=== PATIENT | male | born 1970 | race Two or more races ===

== ENCOUNTER 2018-10-15 20:00 | Inpatient (IN) | payer MEDICARE, MEDICAID ==
[~2018-10-15] VITALS: Ht 172.7 cm; Wt 73.0 kg
[2018-10-15] MEDS ORDERED: benztropine 1mg tablet PO ONE (21:30)
[2018-10-15] MEDS ORDERED: naproxen 500mg tablet PO ONE (21:30)
[2018-10-15] MEDS ORDERED: QUEtiapine 25mg tablet PO ONE (21:35)
[2018-10-15] MEDS ORDERED: gabapentin 100mg capsule PO ONE (21:35)
[2018-10-15 22:21] VITALS: BP 107/78
[2018-10-15] MEDS ORDERED: acetaminophen 325mg tablet PO PRN (22:25)
[2018-10-15] MEDS ORDERED: magnesium hydroxide 30ml (MOM) UD suspension PO PRN (22:30)
[2018-10-15] MEDS: LORazepam 1 MG tablet PO PRN (22:47)
--- NOTE | 2018-10-15 23:36 | NUR ---
Skin assessment completed by myself and Ellen. No areas of concern noted upon arrival at [facility].
[2018-10-15] MEDS ORDERED: NAPR-56 PO (23:55)
[2018-10-15] MEDS ORDERED: RANI150C4 PO (23:56)
[2018-10-15] MEDS ORDERED: BENZ1TAB7 PO (23:58)
[2018-10-16] MEDS ORDERED: ARIP5TAB4 PO
[2018-10-16] MEDS ORDERED: FLUP5TAB PO (00:02)
[2018-10-16] MEDS ORDERED: QUET25TA PO (00:04)
[2018-10-16] MEDS ORDERED: FLUT200B3 PO (00:07)
[2018-10-16] MEDS ORDERED: ALBU18HF2 INH (00:07)
[2018-10-16] MEDS ORDERED: GABA-530 PO ×2 (00:15)
[2018-10-16] MEDS ORDERED: QUEtiapine 25mg tablet PO PRN (00:30)
[2018-10-16] MEDS ORDERED: albuterol 2.5 MG/3 ML nebule NEB PRN (00:30)
--- NOTE | 2018-10-16 03:00 | NUR ---
ADMIT NOTE: Psychosis NOS/Hx Substance use/Suicidal Ideation. 5150 for DTS. Med Hx: HTN, COPD, Asthma, MEYER's. Client was transferred from [facility] after being placed on a 5150 for DTS. Client has a long hx of mental health issues and inpatient psych admits for psychosis. The 5150 was written after the client reported hearing voices "telling me to stab myself in the stomach". The client was living in '[facility]'. He was taken off Clozaril and Depakote approximately 2 1/2 weeks ago. There were other medication adjustments at that time. The clients behavior started to change, he began to display increasing signs of fear and paranoia. He now reports seeing "stars" and hearing voices. He is experiencing delusions about "being taken out into a field and shot". He reported to staff at [facility] that people were talking about him. He appears to be responding to internal stimuli and is fearful. The client arrived on the unit at 21:30 accompanied by Maureen Trinh. Client ambulated to the unit. He presents as anxious and fearful. He looks slightly younger than his stated age, has poor personal hygiene, and is wearing soiled clothing. During admission the client laid on the bed with his arms across his abdomen and his fist closed. He only moved his head. His eyes darted around the room. He spoke in a low tone and gave inconsistent verbal responses (i.e. he told this RN he stopped smoking two weeks ago and told Dorie Mojica RN he stopped three days ago). He reported to Dorie Mojica RN that he has AIDs. He denied having any infectious diseases to this RN. At this time we do not know HIV status. According to his medical record he has Tardive Dyskinesia. No involuntary movements were noted during assessment. The client was cooperative, but is a poor historian. He signed all consent forms, personal belongings were inventoried, and he accepted PM medications. He was given 2 mg Ativan Tab PO for anxiety. Client fell asleep after assessment.
[2018-10-16 08:00] VITALS: BP 98/65
[2018-10-16] MEDS ORDERED: aripiprazole 5mg tablet PO SCH (08:00)
[2018-10-16] MEDS ORDERED: naproxen 500mg tablet PO SCH (08:00)
[2018-10-16 08:13] LABS: HEMOGLOBIN A1C 5.6 % (4.5-6.2)
[2018-10-16 08:14] LABS: CHOL/HDL RATIO 3.1 (0.00-4.99); CHOLESTEROL 116 MG/DL (0-200); HDL CHOLESTEROL 38 MG/DL (35-60); LDL CHOLESTEROL 66 MG/DL (50-100); TRIGLYCERIDES 104 MG/DL (20-135)
[2018-10-16] MEDS: famotidine 20mg tablet PO SCH ×2 (08:56→20:05)
[2018-10-16] MEDS: benztropine 1mg tablet PO SCH ×2 (08:56→20:06)
[2018-10-16] MEDS: acetaminophen 325mg tablet PO PRN (10:35)
[2018-10-16] MEDS: LORazepam 1 MG tablet PO PRN (12:14)
[2018-10-16] MEDS ORDERED: OLANZapine 5mg rapidly disint. tablet PO ONE (12:45)
[2018-10-16] MEDS ORDERED: fluticasone nasal spray 16GM bottle NS ONE (14:55)
[2018-10-16] MEDS ORDERED: diphenhydrAMINE 25mg capsule PO PRN (14:55)
--- NOTE | 2018-10-16 15:13 | NUR ---
Nursing Progress Note: Patient here for Psychosis NOS/Hx Substance use/Suicidal Ideation. Legal Hold: 5150 for DTS. Med Hx: HTN, COPD, Asthma, MEYER's. Chief Complaint: Client was transferred from [facility] after being placed on a 5150 for DTS. Client has a long hx of mental health issues and inpatient psych admits for psychosis. The 5150 was written after the client reported hearing voices "telling me to stab myself in the stomach". The client was living in '[facility] He was taken off Clozaril and Depakote approximately 2 1/2 weeks ago. There were other medication adjustments at that time. The clients behavior started to change, he began to display increasing signs of fear and paranoia. He now reports seeing "stars" and hearing voices. He is experiencing delusions about "being taken out into a field and shot". He reported to staff at [facility] that people were talking about him. He appears to be responding to internal stimuli and is fearful. Orlando is now admitted for psychiatric stabilization Report received from Dorie with use of SBAR. Why are they here: Safety and stabilization. Assessment What has happened this shift: Patient was asleep at change of shift and up for breakfast. After breakfast patient c/o back pain. RN gave pt Tylenol. Patient stated he is hearing voices but they have lessened. Pt denies SI/HI. Patient states he is sometimes seeing visual hallucinations. Soon after this encounter with patient, patient asks "an I going to tonight?" because the voices are telling me I am. RN called Dr. Garcia who ordered some anti-psychotic meds. Within the hour patient was feeling better. Patient then ate lunch and went to afternoon group. Patient continues on Q 15 minute checks. A/VH: Denies. Sleep: Pt napped for a short time after getting medication. ADL's: Needs prompting. Group attendance: Patient went to groups today. Were meds taken: Compliant. Any med S/E: None observed Mental Status Exam Appearance: Patient is a short, olive skinned main, unkempt with a tuft of hair at his neck. Eye contact: some eye contact. Behavior: :Lays in bed and watches T.V. Speech: Soft. Mood: Depressed. Affect: Anxious. Thought process: Undetermined. Thought Content: dealing with voices. Cognition: . Insight: Poor. Judgment: Impaired. Interventions: Therapeutic Listening. PRN medications. PRN's used: Tylenol, Ativan, Prolaxin, Zyprexa. Therapeutic interventions: 1:1 to assess for severity of symptoms. Medication administration and monitored for side effects. Q15" checks for patient safety. Restraints/seclusion/emergency medication: None. Justification of Continued Inpatient Treatment: Patient is depressed, anxious and hearing voices. Pt needs psychiatric stabilization. Patient would be at high risk for rehospitalization if discharged before stable.
[2018-10-16] MEDS ORDERED: nicotine prolacrilex 2mg gum BC PRN (16:20)
[2018-10-16] MEDS: haloperidol 5mg tablet PO SCH (17:26)
[2018-10-16] MEDS: naproxen 500mg tablet PO PRN (17:26)
[2018-10-16 19:00] VITALS: BP 102/63
[2018-10-16] MEDS: clonazePAM 0.5mg tablet PO SCH (20:06)
[2018-10-16] MEDS: aripiprazole 5mg tablet PO SCH (20:06)
--- NOTE | 2018-10-17 00:36 | NUR ---
Nursing progress note: Chief Complaint: "I hear voices telling me to kill myself." Legal hold:5150 Client on involuntary status for DTS. Report received from nurse Laura with use of SBAR. Why are they here:the patient has long history of mental illness. He has been living at [facility]. Medication changes were made that led to adverse behavioral changes. He started hearing voices and became fearful and paranoid. the patient has been admitted for medication stabilization. Diagnosis/presenting symptoms: Paranoid Schizophrenia with AV/H, fearful, paranoid. Assessment What has happened this shift: The patient was found in his bed. He reports that he's still hearing voices, but they are better than before. The patient says that he's still feeling a little paranoid, but he's able to tolerate it. The patient is guarded with his answers and does not spontaneously converse. He spent the entire night in bed. S/I, H/I:Denies A/VH: Both Sleep: Patient has been sleeping all night. ADL's:Independent Group attendance:None tonight Were meds taken:Yes Any med S/E: None noted. Mental Status Exam Appearance: Disheveled, unkempt man laying in bed with bad haircut. Eye contact:Poor Behavior:Laying in bed, mostly sleeping. Speech:Clear, low volume Mood: Depressed Affect:Guarded Thought process: Linear Thought Content: Preoccupied with hallucinations Cognition: A/O x2 Insight:Poor Judgment: Mostly intact Interventions PRN's used:none Therapeutic interventions:1:1, positive reinforcement. Medication education and administration, q15 minute visual checks. Restraints/seclusion/emergency medication:None Justification of Continued Inpatient Treatment: The patient remains unstable, with voices commanding him to harm himself. If discharged before stabilization, the patient may act on these commands and harm self.
[2018-10-17] MEDS: benztropine 1mg tablet PO SCH ×2 (06:31→20:17)
[2018-10-17] MEDS: haloperidol 5mg tablet PO PRN (06:32)
[2018-10-17 07:21] VITALS: BP 99/68
[2018-10-17] MEDS: haloperidol 5mg tablet PO SCH ×3 (07:55→20:17)
[2018-10-17] MEDS: famotidine 20mg tablet PO SCH ×2 (07:55→20:17)
[2018-10-17] MEDS: clonazePAM 0.5mg tablet PO SCH ×3 (07:55→20:16)
[2018-10-17] MEDS: fluticasone nasal spray 16GM bottle NS SCH (07:57)
[2018-10-17] MEDS: LORazepam 1 MG tablet PO PRN ×2 (09:32→20:17)
--- NOTE | 2018-10-17 14:19 | NUR ---
Nursing Progress Note: Patient here for Psychosis NOS/Hx Substance use/Suicidal Ideation. Legal Hold: 5150 for DTS. Med Hx: HTN, COPD, Asthma, MEYER's. Chief Complaint: Client was transferred from [facility] after being placed on a 5150 for DTS. Client has a long hx of mental health issues and inpatient psych admits for psychosis. The 5150 was written after the client reported hearing voices "telling me to stab myself in the stomach". The client was living in [facility] He was taken off Clozaril and Depakote approximately 2 1/2 weeks ago. There were other medication adjustments at that time. The clients behavior started to change, he began to display increasing signs of fear and paranoia. He now reports seeing "stars" and hearing voices. He is experiencing delusions about "being taken out into a field and shot". He reported to staff at [facility] that people were talking about him. He appears to be responding to internal stimuli and is fearful. Orlando is now admitted for psychiatric stabilization Report received from MIRTHA Mccoy with use of SBAR. Why are they here: Safety and stabilization. Assessment What has happened this shift: Patient was awake at change of shift and RN found patient in his room sitting on the edge of the bed looking out the window. RN asked patient if he was okay. Patient stated he sees his body outside the window. Patient is also hearing voices but he can't make out what they are saying. Pt denies SI/HI. RN gave patient his PRN Haldol and Cogentin. At breakfast patient states he is still hearing voices and asks RN "I going to ?". RN reassures patient that he is safe and we are taking care of him. RN gave patient his morning medications including his regular dose of Haldol. Mid morning patient states he is still hearing voices. RN gave patient Ativan, gurpreet Green RN, Ativan has helped his hallucinations in the past. Patient doing better in the afternoon. Patient continues on Q 15 minute checks. A/VH: Denies. Sleep: Pt takes cat naps throughout the day. ADL's: Needs prompting. Group attendance: No groups today. Were meds taken: Compliant. Any med S/E: None observed Mental Status Exam Appearance: Patient is a short, olive skinned main, unkempt with a tuft of hair at his neck. Eye contact: some eye contact. Behavior: :Lays in bed and watches T.V. Speech: Soft. Mood: Depressed. Affect: Anxious. Thought process: Undetermined. Thought Content: dealing with voices. Cognition: . Insight: Poor. Judgment: Impaired. Interventions: Therapeutic Listening. PRN medications. PRN's used: Tylenol, Ativan, Prolaxin, Zyprexa. Therapeutic interventions: 1:1 to assess for severity of symptoms. Medication administration and monitored for side effects. Q15" checks for patient safety. Restraints/seclusion/emergency medication: None.
[2018-10-17] MEDS: mag hydrox/Alum hydrox/simeth 30ml oral suspension PO PRN (16:50)
[2018-10-17 19:19] VITALS: BP 86/54
[2018-10-17] MEDS: aripiprazole 5mg tablet PO SCH (20:16)
--- NOTE | 2018-10-18 01:07 | NUR ---
Nursing progress note: Chief Complaint: "I hear voices telling me to kill myself." Legal hold:5150 Client on involuntary status for DTS. Report received from nurse Laura with use of SBAR. Why are they here:the patient has long history of mental illness. He has been living at [facility]. Medication changes were made that led to adverse behavioral changes. He started hearing voices and became fearful and paranoid. the patient has been admitted for medication stabilization. Diagnosis/presenting symptoms: Paranoid Schizophrenia with AV/H, fearful, paranoid. Assessment What has happened this shift: The patient was standing in the doorway to his room at shift change. He agreed to 1:1 at bedside. The patient believes that he is getting slowly better. He's denying any visual hallucinations, but describes audio hallucinations, "I can't make out what is said." Visually , he appears paranoid and fearful, but denies those symptoms. He reports that he believes he's on the right medications now. The patient spent the night isolated to his room. S/I, H/I:Denies A/VH: Denies visual hallucinations, describes audio. Sleep: Patient has been sleeping all night. ADL's:Independent Group attendance:None tonight Were meds taken:Yes Any med S/E: None noted. Mental Status Exam Appearance: Disheveled, unkempt man standing in his doorway wearing street clothes. Eye contact: Poor Behavior: Isolated to his bedroom all shift Speech:Clear, low volume Mood: "I'm doing better." Affect:Guarded, paranoid, fearful. Thought process: Linear Thought Content: Preoccupied with hallucinations, and his belief that he is going to soon Cognition: A/O Insight:Poor Judgment: Impaired Interventions PRN's used: Ativan for anxiety Therapeutic interventions:1:1, positive reinforcement. Medication education and administration, q15 minute visual checks, reality orientation. Restraints/seclusion/emergency medication:None Justification of Continued Inpatient Treatment: The patient remains unstable, with voices commanding him to harm himself. If discharged before stabilization, the patient may act on these commands and harm self.
[2018-10-18 07:40] VITALS: BP 123/74
[2018-10-18] MEDS: haloperidol 5mg tablet PO SCH ×3 (08:08→20:12)
[2018-10-18] MEDS: clonazePAM 0.5mg tablet PO SCH ×3 (08:08→20:11)
[2018-10-18] MEDS: famotidine 20mg tablet PO SCH ×2 (08:08→20:11)
[2018-10-18] MEDS: fluticasone nasal spray 16GM bottle NS SCH (08:09)
[2018-10-18] MEDS: benztropine 1mg tablet PO SCH ×2 (08:09→20:11)
[2018-10-18] MEDS: naproxen 500mg tablet PO PRN (08:53)
[2018-10-18] MEDS: acetaminophen 325mg tablet PO PRN (12:24)
--- NOTE | 2018-10-18 16:18 | NUR ---
Nursing progress note: Chief Complaint: "I hear voices telling me to kill myself." Legal hold:5150 Client on involuntary status for DTS. Report received from nurse Nick SHANNON with use of SBAR. Why are they here:the patient has long history of mental illness. He has been living at [facility]. Medication changes were made that led to adverse behavioral changes. He started hearing voices and became fearful and paranoid. the patient has been admitted for medication stabilization. Diagnosis/presenting symptoms: Paranoid Schizophrenia with AV/H, fearful, paranoid. Assessment What has happened this shift: Pt out of room for meals and group, also likes to sit in chair out in hallway or watch TV in the rec room. Pt appears nervous, he is hearing voices frequently today and reports that they are telling him, "you're going to ." When asked if they tell him to do anything like hurt himself, he replied, "yes," but could not elaborate, just repeated that they are telling him he is going to . Pt also stated that he is having visual hallucinations today, when asked what he was seeing, he replied," bodies in my room." Pt rated his depression as a 7/10 today, he c/o neck and back pain and was medicated with prn naprosyn and Tylenol. Pt asked where he was going from here, reminded him that he will be going back to [facility] once stable, pt looked incredulous albeit pleased, and asked, "you aren't just telling me what I want to hear?" S/I, H/I: Pt denies HI, unclear if he is experiencing SI A/VH: +AH, + VH Sleep: Pt slept per noc shift report ADL's: Independent Group attendance: Attended morning group Were meds taken:Yes Any med S/E: None noted or reported Mental Status Exam Appearance: clean, nervous Eye contact: Poor Behavior: hypervigilant, internally preoccupied Speech: soft, somewhat fast, a bit disorganized Mood: depressed, anxious Affect:Guarded, fearful. Thought process: paranoid, slightly disorganized Thought Content: Preoccupied with scary auditory and visual hallucinations Cognition: A/O X 2, knew he was in a hospital, did not know which one, knew it was October, thought it was 2019. Insight:Poor Judgment: Poor Interventions PRN's used: none Therapeutic interventions:1:1 assessment, reality orientation, medication administration/monitoring, Q 15 minute checks Restraints/seclusion/emergency medication:None Justification of Continued Inpatient Treatment: Pt continues to be paranoid, restricted, hypervigilant, appears internally preoccupied and states he is having scary visual hallucinations and auditory hallucinations (sometimes command) saying he is going to . Pt continues to need medication adjustment/symptom management while under close supervision.
[2018-10-18 19:42] VITALS: BP 103/54
[2018-10-18] MEDS: LORazepam 1 MG tablet PO PRN (20:11)
[2018-10-18] MEDS: aripiprazole 5mg tablet PO SCH (20:11)
--- NOTE | 2018-10-18 23:45 | NUR ---
Nursing progress note: Chief Complaint: "I hear voices telling me they're going to take me [place] the [place] to shoot me." Legal hold:5150 Client on involuntary status for DTS. Report received from nurse Jackson with use of SBAR. Why are they here:the patient has long history of mental illness. He has been living at [facility]. Medication changes were made that led to adverse behavioral changes. He started hearing voices and became fearful and paranoid. the patient has been admitted for medication stabilization. Diagnosis/presenting symptoms: Paranoid Schizophrenia with AV/H, fearful, paranoid. Assessment What has happened this shift: The patient was seen in his room while he lay in bed. He looks fearful and describes that he's seeing bodies in his room. He also says voices are telling him that he's going to be taken out to the desert and shot. "I know they're not real, but they scare me." The patient denies thoughts of self harm. The patient is compliant with medications, and is waiting for them to start working. "My meds used to work." He's once again asking for reassurance that he's got a bed at [facility]. The patient came out of his room for a snack, then went right back to his room where he stayed the rest of the night. S/I, H/I:Denies A/VH: Describes bodies in his room.. Sleep: Patient is sleeping. ADL's: Independent Group attendance:None tonight Were meds taken:Yes Any med S/E: None noted. Mental Status Exam Appearance: Disheveled, unkempt man laying in bed with covers up to his chin. Eye contact: Poor Behavior: Isolated to his bedroom all shift Speech:Clear, low volume Mood: "Depressed." Affect:Guarded, paranoid, fearful. Thought process: Linear Thought Content: Preoccupied with hallucinations, and his discharge back to [facility]. Cognition: A/O Insight:Poor Judgment: Impaired Interventions PRN's used: Ativan for anxiety Therapeutic interventions:1:1, positive reinforcement. Medication education and administration, q15 minute visual checks, reality orientation. Restraints/seclusion/emergency medication:None Justification of Continued Inpatient Treatment: The patient remains unstable, with voices commanding him to harm himself. If discharged before stabilization, the patient may act on these commands and harm self.
[2018-10-19 07:46] VITALS: BP 105/63
[2018-10-19] MEDS: clonazePAM 0.5mg tablet PO SCH ×3 (08:48→21:02)
[2018-10-19] MEDS: benztropine 1mg tablet PO SCH ×2 (08:48→21:01)
[2018-10-19] MEDS: famotidine 20mg tablet PO SCH ×2 (08:48→21:01)
[2018-10-19] MEDS: haloperidol 5mg tablet PO SCH ×3 (08:48→21:01)
[2018-10-19] MEDS: fluticasone nasal spray 16GM bottle NS SCH (08:48)
[2018-10-19] MEDS: acetaminophen 325mg tablet PO PRN (08:55)
[2018-10-19] MEDS: naproxen 500mg tablet PO PRN (10:36)
[2018-10-19] MEDS: LORazepam 1 MG tablet PO PRN (13:38)
[2018-10-19] MEDS: haloperidol 5mg tablet PO PRN (13:39)
--- NOTE | 2018-10-19 15:21 | NUR ---
Nursing Progress Note Chief Complaint: Patient living at [facility] and having A/V/H. SI. Legal hold: 5250 Client on involuntary status for GD/DTS. Report received from Nick with use of SBAR. Why are they here: To provide a safe and therapeutic environment for patient to stabilize. Diagnosis/presenting symptoms: Psychosis. Assessment What has happened this shift: Patient has been hallucinating this morning. States voices are stating that they are going to kill him. Approached client and he asked when he was going to . Explained that he is in a safe environment and that he will not be harmed on unit. S/I, H/I: SI. A/VH: Yes. Sleep: Slept this afternoon after medicated for psychosis. ADL's: Needs prompting. Independent. Group attendance: No Were meds taken: Complaint. Any med S/E None. Mental Status Exam Appearance: male with pony tail. Showered, clean and appropriate. Eye contact: Minimal. Behavior: Slowing. Appropriate. Speech: Low volume, clear. Mood: Depressed, confused. Affect: flat. Thought process: hallucinating. Believes he will . Thought Content: Today pt informed RN that he has Herpes and AIDS and that [facility] does not know, called hospitalist per Dr. Kim. Cognition: Confused, but communicates needs. Insight: Poor. Judgment: Impaired. Interventions PRN's used: Haldol 5 mg, Benadryl 50 mg, Ativan 2 mg. Therapeutic interventions: 1:1 to assess severity of symptoms. q15" safety checks. Restraints/seclusion/emergency medication: None. Justification of Continued Inpatient Treatment: Patient is having command hallucinations to harm himself, he is confused and needs medication stabilization, support and ongoing monitoring. At this time, patient would be high risk for readmission if discharged at this time.
--- NOTE | 2018-10-19 16:51 | NUR ---
Nursing Note Dr. Lehman here to see patient. Patient states he has AIDS but during eval, discloses that he has never been diagnosed, but feels that he is going to . Genitalia assessed and pt. states that he was bitten in the genitals by a dog, well healed per physician. Dr. Lehman will order HIV test.
[2018-10-19 16:57] LABS: BASOPHILS # (AUTO) 0.1 X10'3 (0-0.2); BASOPHILS % (AUTO) 0.7 % (0-1); EOSINOPHILS # (AUTO) 0.1 X10'3 (0-0.9); EOSINOPHILS % (AUTO) 1.3 % (0-6); HEMATOCRIT 41.6 % (42.0-52.0); HEMOGLOBIN 13.9 g/dl (14.0-17.9); LYMPHOCYTES # (AUTO) 2.8 X10'3 (1.1-4.8); MEAN CORPUSCULAR HEMOGLOBIN 31.5 PG (27.0-31.0); MEAN CORPUSCULAR HGB CONC 33.5 % (33.0-36.5); MONOCYTES # (AUTO) 0.7 X10'3 (0-0.9); MONOCYTES % (AUTO) 8.8 % (2-12); NEUTROPHILS # (AUTO) 3.9 X10'3 (1.8-7.7); NEUTROPHILS % (AUTO) 52.2 % (42-75); PLATELET COUNT 220 X10'3 (140-440); RED BLOOD COUNT 4.42 X10'6 (4.70-6.10); RED CELL DISTRIBUTION WIDTH 13.1 % (11.5-14.5); WHITE BLOOD COUNT 7.5 X10'3 (4.5-11.0)
[2018-10-19 17:57] LABS: ALANINE AMINOTRANSFERASE 21 U/L (12-78); ALBUMIN 3.1 G/DL (3.4-5.0); ALBUMIN/GLOBULIN RATIO 1.2 (1.1-1.5); ALKALINE PHOSPHATASE 71 IU/L (46-116); ANION GAP 7 (8-16); ASPARTATE AMINO TRANSFERASE 12 U/L (10-37); BILIRUBIN,TOTAL 0.4 MG/DL (0.1-1.0); BLOOD UREA NITROGEN 26 MG/DL (7-18); CALCIUM 8.5 MG/DL (8.5-10.1); CHLORIDE 107 MMOL/L (99-107); CREATININE 0.93 MG/DL (0.60-1.10); GLUCOSE 100 MG/DL (70-104); POTASSIUM 3.9 MMOL/L (3.5-5.1); SODIUM 143 MMOL/L (135-145); TOTAL CARBON DIOXIDE 28.6 MMOL/L (24-32); TOTAL PROTEIN 5.6 G/DL (6.4-8.2); eGFR 87 ML/MIN
[2018-10-19 20:13] VITALS: BP 90/42
[2018-10-19 20:30] VITALS: BP 110/54
[2018-10-19] MEDS: aripiprazole 5mg tablet PO SCH (21:02)
--- NOTE | 2018-10-20 05:21 | NUR ---
Nursing Note: Chief Complaint: Psychosis Legal hold:5250 Client on involuntary status for DTS Report received from nurse with use of SBAR: MIRTHA Turner Why are they here: Pt. presented by [facility] per DTS r/t acute psychosis per hx of Schizophrenia. He has A/H that command him to hurt himself and V/H. He had recent medication changes and is admitted to get his medications stabilized. Pt. will return to [facility] in [facility] upon discharge Diagnosis/presenting symptoms: Pt. refuses assessment this shift, very fatigued and states, "I don't feel good, I'm tired." Assessment What has happened this shift: Pt. laying in bed sleeping at beginning of the shift, continued to isolate here throughout the shift. He is very withdrawn, fatigued, cooperative with physical assessment, however non-cooperative with mental assessment. He does not appear anxious or to be responding to any internal stimuli, however states, "I don't feel good, I'm tired." New order obtained for UA per pt. recent report of not feeling well, educated pt. on this and he voiced understanding, however unable to collect urine this shift. Will endorse to AM shift. Pt. to also get a chest x-ray this AM, paged radiology. Liver labs are pending. S/I, H/I: Unable to assess A/VH: Unable to assess Sleep: Pt. able to sleep throughout entire shift ADL's: Independent Group attendance: Did not attend HS snack Were meds taken: Yes Any med S/E: No Mental Status Exam Appearance: Hair disheveled, however appropriately dressed in hospital attire Eye contact: Poor Behavior: Withdrawn , psychomotor activity WNL Speech: Slow, soft and inaudible at times Mood: Fatigued Affect: Constricted Thought process: Thought blocking and poverty of thought Thought Content: A/H, V/H, paranoia, and phobia (r/t command h/a) Cognition: A&O X1 (to name only) Insight: Poor Judgment: Poor Interventions PRN's used: None Therapeutic interventions: Attempted to establish rapport, provided active listening, maintained a safe and therapeutic environment, provided education on medications and need to obtain UA, and maintained Q 15 min safety checks. Restraints/seclusion/emergency medication: N/A Justification of Continued Inpatient Treatment: Pt. requires interruption of crisis and medication adjustments, he will return to [facility] in [facility].
[2018-10-20 07:49] VITALS: BP 100/56
[2018-10-20] MEDS: haloperidol 5mg tablet PO SCH ×2 (08:07→20:32)
[2018-10-20] MEDS: benztropine 1mg tablet PO SCH ×2 (08:07→20:32)
[2018-10-20] MEDS: clonazePAM 0.5mg tablet PO SCH ×2 (08:07→12:24)
[2018-10-20] MEDS: famotidine 20mg tablet PO SCH ×2 (08:07→20:32)
[2018-10-20 08:25] LABS: CHOL/HDL RATIO 3.2 (0.00-4.99); CHOLESTEROL 119 MG/DL (0-200); HDL CHOLESTEROL 37 MG/DL (35-60); LDL CHOLESTEROL 70 MG/DL (50-100); TRIGLYCERIDES 121 MG/DL (20-135)
[2018-10-20] MEDS: LORazepam 1 MG tablet PO PRN (09:25)
[2018-10-20] MEDS: fluticasone nasal spray 16GM bottle NS SCH (09:25)
[2018-10-20] MEDS: naproxen 500mg tablet PO PRN (12:23)
[2018-10-20] MEDS: acetaminophen 325mg tablet PO PRN (12:24)
[2018-10-20] MEDS ORDERED: tuberculin, purif. prot. deriv. 5 units/0.1ml ID ONE (14:00)
--- NOTE | 2018-10-20 14:04 | NUR ---
Nursing Progress Note: Patient here for Psychosis NOS/Hx Substance use/Suicidal Ideation. Legal Hold: 5150 for DTS. Med Hx: HTN, COPD, Asthma, MEYER's. Chief Complaint: Client was transferred from [facility] after being placed on a 5150 for DTS. Client has a long hx of mental health issues and inpatient psych admits for psychosis. The 5150 was written after the client reported hearing voices "telling me to stab myself in the stomach". The client was living in [facility] He was taken off Clozaril and Depakote approximately 2 1/2 weeks ago. There were other medication adjustments at that time. The clients behavior started to change, he began to display increasing signs of fear and paranoia. He now reports seeing "stars" and hearing voices. He is experiencing delusions about "being taken out into a field and shot". He reported to staff at [facility] that people were talking about him. He appears to be responding to internal stimuli and is fearful. Orlando is now admitted for psychiatric stabilization Report received from MIRTHA White with use of SBAR. Why are they here: Safety and stabilization. Assessment What has happened this shift: Patient was asleep at change of shift and up before breakfast. Patient still c/o hearing voices. Patient also believes someone is going to kill him. Patient isolates and is not open with his feelings other than he is hearing voices. RN reassures patient that he is safe and no one is going to kill him. RN gave him his medication and later in the morning RN gave him Ativan to help alleviate the voices. Patient also got medication for back pain and MEYER. Patient took a nap after lunch. Patient continues to hear voices. Dr Garcia is aware. Patient has flat affect and is goal oriented. Patient is calm and paces halls at times. Patient continues on Q 15 minute checks. A/VH: Denies. Sleep: Pt takes cat naps throughout the day. ADL's: Needs prompting. Group attendance: Patient attended morning group. Were meds taken: Compliant. Any med S/E: None observed Mental Status Exam Appearance: Patient is a short, olive skinned main, unkempt with a tuft of hair at his neck. Eye contact: some eye contact. Behavior: :Lays in bed and watches T.V. Speech: Soft. Mood: Depressed. Affect: Anxious. Thought process: Undetermined. Thought Content: dealing with voices. Cognition: .
--- NOTE | 2018-10-20 18:27 | NUR ---
Process/Discharge Planning Note: Spoke w/ Durga at [facility]. He confirmed pt is not conserved. He was recently taken off conservatorship last month or the month before. He was receiving services from [facility] and was in the process of being transferred to [facility] when he was admitted to our unit. He is currently in the jurisdiction of both [facility]. His baseline he still hears voices, how well he is doing depends on what they are telling him and how loud they are. Listening to music really helps him. Durga was willing to bring his MP3 player, explained rules regarding cords, this quality analyst/technical writer asked if pt had bluetooth ear phones, the pt does not. Perhaps if pt is having difficulty he can be encouraged to go in rec room and listen to music on TV. Inga Soto, ACSW
[2018-10-20 18:28] LABS: HIV ANTIBODY 1&2 RAPID NON-REACTIVE (Neg)
[2018-10-20] MEDS ORDERED: benztropine 1mg tablet PO PRN (19:45)
[2018-10-20 19:50] VITALS: BP 114/71
[2018-10-20] MEDS: clonazePAM 1mg tablet PO SCH (20:31)
[2018-10-20] MEDS: aripiprazole 5mg tablet PO SCH (20:35)
--- NOTE | 2018-10-20 23:01 | NUR ---
Nursing Progress Note: Patient here for Psychosis NOS/Hx Substance use/Suicidal Ideation. Legal Hold: 5250 for DTS. Med Hx: HTN, COPD, Asthma, MEYER's. Chief Complaint: Client was transferred from [facility] after being placed on a 5150 for DTS. Client has a long hx of mental health issues and inpatient psych admits for psychosis. The 5150 was written after the client reported hearing voices "telling me to stab myself in the stomach". The client was living in '[facility] He was taken off Clozaril and Depakote approximately 2 1/2 weeks ago. There were other medication adjustments at that time. The clients behavior started to change, he began to display increasing signs of fear and paranoia. He now reports seeing "stars" and hearing voices. He is experiencing delusions about "being taken out into a field and shot". He reported to staff at [facility] that people were talking about him. He appears to be responding to internal stimuli and is fearful. Orlando is now admitted for psychiatric stabilization Report received from MIRTHA Sanchez with use of SBAR. Why are they here: Safety and stabilization. Assessment What has happened this shift: Patient was lying in bed and awake at change of shift. Patient still c/o hearing voices. Patient also believes someone is going to kill him. Patient isolates and is not open with his feelings other than he is hearing voices. RN reassures patient that he is safe and no one is going to kill him. Patient continues to hear voices. Dr Garcia is aware. Patient has flat affect and is goal oriented. Patient is calm and paces halls at times. Patient continues on Q 15 minute checks. A/VH: Denies. Sleep: Asleep at this time. ADL's: Needs prompting. Group attendance: Declined to come to group room for snacks. Were meds taken: Compliant. Any med S/E: None observed Mental Status Exam Appearance: Patient is a short, olive skinned main, unkempt. Eye contact: some eye contact. Behavior: :Lays in bed. Speech: Soft. Mood: Depressed. Affect: Anxious. Thought process: Undetermined. Thought Content: dealing with voices. Cognition: Unable to assess. Patient does not want to talk.
[2018-10-21 08:00] VITALS: BP 96/59
[2018-10-21 08:15] LABS: HBSAG SCREEN Negative (Negative); HEP A AB, IGM Negative (Negative); HEP B CORE AB, IGM Negative (Negative); HEPATITIS C ANTIBODY <0.1 s/co ratio (0.0-0.9)
[2018-10-21] MEDS: haloperidol 5mg tablet PO SCH (08:43)
[2018-10-21] MEDS: famotidine 20mg tablet PO SCH ×2 (08:43→20:15)
[2018-10-21] MEDS: clonazePAM 0.5mg tablet PO SCH ×2 (08:43→12:25)
[2018-10-21] MEDS: fluticasone nasal spray 16GM bottle NS SCH (08:44)
[2018-10-21] MEDS: acetaminophen 325mg tablet PO PRN (08:44)
[2018-10-21] MEDS: benztropine 1mg tablet PO SCH ×2 (08:44→20:15)
[2018-10-21] MEDS: naproxen 500mg tablet PO PRN (10:35)
[2018-10-21 14:31] LABS: CLARITY,URINE CLOUDY (Clear); COLOR,URINE YELLOW (Yellow); GLUCOSE, URINE NEGATIVE (Neg); KETONES,URINE TRACE mg/dl (Neg); LEUKOCYTE ESTERASE ,URINE NEGATIVE (Neg); NITRITES, URINE POSITIVE (Neg); OCCULT BLOOD,URINE NEGATIVE (Neg); PROTEIN,URINE NEGATIVE (Neg); UROBILINOGEN,URINE 0.2 E.U/dL (0.2-1.0)
[2018-10-21 15:08] LABS: UA COLLECTION TYPE CLN CATCH MIDSTREAM
[2018-10-21 15:10] LABS: BACTERIA,URINE 4+ /HPF (Neg); MUCUS STRANDS FEW /LPF (Neg); RBC,URINE NONE SEEN /HPF (0-2); SQUAMOUS EPITHELIAL CELL,UR FEW /LPF (FEW); WBC,URINE 0-4 /HPF (0-4)
[2018-10-21] MEDS: nicotine 21mg patch - 24 hr TD SCH (16:30)
--- NOTE | 2018-10-21 17:27 | NUR ---
Nursing Progress Note Chief Complaint: Patient living at [facility] and having A/V/H. SI. Legal hold: 5250 Client on involuntary status for GD/DTS. Report received from Michelle with use of SBAR. Why are they here: To provide a safe and therapeutic environment for patient to stabilize. Diagnosis/presenting symptoms: Psychosis. Assessment Patient has been up in visible on the unit today. Patient went to meals and attending groups. Patient would get restless during group and sometimes get up and pace the unit. Patient complains of not feeling well to staff and when questioned about it states he is still hearing voices and that they are no better. Patient states the voices are putting him down and making him feel bad about himself. Patient states his depression is no better and has flat, depressed affect. Patient had his 5250 hearing on the unit today. Patient did not contest the hearing and did not attend. 5250 was upheld. Patient complained of 8/10 pain in his lower back and was medicated with Tylenol which reduced pain to 6/10. Patient was then medicated with naproxen and pain was for the reduced to 4/10. S/I, H/I: SI. A/VH: Yes. Sleep: ADL's: Needs prompting. Independent. Group attendance: No Were meds taken: Complaint. Any med S/E None. Mental Status Exam Appearance: male with pony tail. Showered, clean and appropriate. Eye contact: Minimal. Behavior: Slowing. Appropriate. Speech: Low volume, clear. Mood: Depressed, confused. Affect: flat. Thought process: hallucinating. Aud. Mejia. Telling him why do you think youre so cool? . . . Youre not cool Thought Content: no evidence of paranoid thought process, pt reports depression Cognition: Confused, but communicates needs. Insight: Poor. Judgment: Impaired. Interventions PRN's used: Naproxen - lower back pain reduced from 6/10n to 4/10. Therapeutic interventions: 1:1 to assess severity of symptoms. q15" safety checks. Restraints/seclusion/emergency medication: Encouraged therapeutic group attendance. Justification of Continued Inpatient Treatment: Patient states his auditory mejia are still tormenting him. he is confused and needs medication stabilization, support and ongoing monitoring. At this time, patient would be high risk for readmission if discharged at this time.
[2018-10-21 20:14] VITALS: BP 114/63
[2018-10-21] MEDS: haloperidol 1mg tablet PO SCH (20:15)
[2018-10-21] MEDS: clonazePAM 1mg tablet PO SCH (20:15)
[2018-10-21] MEDS: aripiprazole 5mg tablet PO SCH (20:16)
--- NOTE | 2018-10-22 00:15 | NUR ---
Nursing Progress Note Chief Complaint: Pt reporting a/vh. Legal hold: 5250 Client on involuntary status for GD/DTS. Report received from Umesh with use of SBAR. Why are they here: To provide a safe and therapeutic environment for patient to stabilize. Diagnosis/presenting symptoms: Psychosis. Assessment: Pt was laying in his bed at change of shift, 1:1 assessment completed at bedside. Pt was laying in bed w/blankets pulled up. He gave short answers to questions denies s/i but states he is hearing voices. Pt states he cant understand what the voices are saying at this time. Pt states his appetite was good today. He reports he didnt sleep well last night. He states his meds are not working for him. Pt denies any pain. Pt remained in bed the remainder of the shift. S/I, H/I: denies A/VH: Yes. Sleep: pt reports not sleeping well ADL's: Needs prompting. Independent. Group attendance: No Were meds taken: yes Any med S/E None reported or observed Mental Status Exam Appearance: Pt is adequately groomed and dressed Eye contact: good Behavior: isolative, stayed in bed, appears to be responding to IS. Speech: Low volume, clear. Mood: somnolent depressed Affect: flat. Thought process: guarded, Thought Content: pt is quiet reports hearing voices, cant understand what they are saying Cognition: impaired Insight: Poor. Judgment: Impaired. Interventions PRN's used: none Therapeutic interventions: 1:1 to assess severity of symptoms. q15" safety checks. Restraints/seclusion/emergency medication: Encouraged therapeutic group attendance. Justification of Continued Inpatient Treatment: Patient responding to IS, reports A/VH, doesnt think he is ready to go home. At this time, patient would be high risk for readmission if discharged at this time.
[2018-10-22] MEDS: famotidine 20mg tablet PO SCH ×2 (07:55→20:13)
[2018-10-22] MEDS: benztropine 1mg tablet PO SCH ×2 (07:55→20:12)
[2018-10-22] MEDS: clonazePAM 0.5mg tablet PO SCH ×2 (07:55→13:30)
[2018-10-22] MEDS: haloperidol 1mg tablet PO SCH ×2 (07:56→20:13)
[2018-10-22 08:00] VITALS: BP 123/64
[2018-10-22] MEDS: nicotine 21mg patch - 24 hr TD SCH (08:00)
--- NOTE | 2018-10-22 08:40 | NUR ---
Initial: Pt was admitted on a 5150. Pt has history of alcohol,amphetamine and cannabis abuse. Pt PO intake is 75-100% meeting nutrition needs. LBM 10/22. No nutrition problem at this time. Will continue to monitor. Rec: 1. Continue with regular diet 2. wt per rx Addendum: 10/22/18 at [address] Amended: Links added. Addendum: 10/22/18 at [address] GALLO agree with note
[2018-10-22] MEDS: fluticasone nasal spray 16GM bottle NS SCH (08:45)
--- NOTE | 2018-10-22 14:35 | NUR ---
PPD results: PPD skin test administered on 10/20 and read on 10/22 - negative (<1.0 mm)
--- NOTE | 2018-10-22 17:30 | NUR ---
Nursing Progress Note Chief Complaint: Patient living at [facility] and having A/V/H. SI. Legal hold: 5250 expires 11/01/18 Client on involuntary status for GD/DTS. Report received from MIRTHA Oseha with use of SBAR. Why are they here: To provide a safe and therapeutic environment for patient to stabilize. Diagnosis/presenting symptoms: Psychosis. Assessment Patient visible on the unit today. Patient up in dining room for meals and groups. Patient did not participate in groups but sat there for a portion of the time. Patient again complained of not feeling well and when questioned further about it he said he was continuing to hear voices telling him to hurt himself. Patient continues to endorse depression with vague suicidal ideation. No plan. S/I, H/I: SI. A/VH: Yes. Sleep: nap ADL's: Needs prompting. Independent. Group attendance: yes, no participation Were meds taken: Complaint. Any med S/E None. Mental Status Exam Appearance: male with pony tail. Poor hygiene Eye contact: Minimal. Behavior: Slowing. Appropriate. Speech: Low volume, clear. Mood: Depressed, confused. Affect: flat. Thought process: hallucinating. Aud. Mejia. Telling him to kill himself Thought Content: no evidence of paranoid thought process, pt reports depression Cognition: Confused, but communicates needs. Insight: Poor. Judgment: Impaired. Interventions PRN's used: Therapeutic interventions: 1:1 to assess severity of symptoms. q15" safety checks. Restraints/seclusion/emergency medication: Encouraged therapeutic group attendance. Justification of Continued Inpatient Treatment: Patient states his auditory mejia are still tormenting him. he is confused and needs medication stabilization, support and ongoing monitoring. At this time, patient would be high risk for readmission if discharged at this time.
[2018-10-22 19:00] VITALS: BP 98/60
[2018-10-22] MEDS: aripiprazole 5mg tablet PO SCH (20:12)
[2018-10-22] MEDS: clonazePAM 1mg tablet PO SCH (20:13)
--- NOTE | 2018-10-23 00:37 | NUR ---
Nursing Progress Note Chief Complaint: Patient living at [facility] and having A/V/H. SI. Legal hold: 5250 expires 11/01/18 Client on involuntary status for GD/DTS. Report received from MIRTHA Calvo with use of SBAR. Why are they here: To provide a safe and therapeutic environment for patient to stabilize. Diagnosis/presenting symptoms: Psychosis. Assessment Pt was laying in bed at change of shift. 1:1 assessment at bedside. Pt remained in bed for entire shift. Pt denies s/i. Pt reports he is hearing voices but "cant tell what they are saying." Pt is gaurded and gives short answers, appears to be responding to IS. Pt has flat affect and is tearful. Pt reports appetite is good, he slept good last night. He states "the medicine isnt working". S/I, H/I: Denies s/i, denies any plan for self harm. A/VH: Yes. Sleep: pt reports he slept well last night. ADL's: Needs prompting. Independent. Pt is malodorous, sleeps with his shoes on, asked pt about showering and he declined a shower tonight saying he had one "2 days ago." Group attendance: No evening group Were meds taken: Yes Any med S/E: None reported or observed Mental Status Exam Appearance: Portuguese Somo[place] male w/a ponytail. Pt is malodorous, wearing layers of clothing in bed as well as his shoes while he is sleeping. Pt was encouraged to shower or change into bed clothes and he declined. Eye contact: Good Behavior: Pt remains in bed for duration of the shift. Pt is curled up under blankets Speech: soft, poverty of speech Mood: Depressed, tearful Affect: flat. constricted Thought process: Pt is gaurded, responding to IS, reports a/vh Thought Content: Pt gives short answers to questions. Cognition: impaired Insight: Poor. Judgment: Impaired. Interventions PRN's used: Therapeutic interventions: 1:1 assessment, observed q15 min for safety, encouraged hygeine/adl's Restraints/seclusion/emergency medication: none Justification of Continued Inpatient Treatment: Patient continues to have a/vh. Needs continued medication stabilization, support and ongoing monitoring. At this time, patient would be high risk for readmission if discharged at this time.
[2018-10-23 08:00] VITALS: BP 104/66
[2018-10-23] MEDS: CARIPRAZINE 1.5 MG PO SCH (08:00)
[2018-10-23] MEDS: fluticasone nasal spray 16GM bottle NS SCH (08:00)
[2018-10-23] MEDS: clonazePAM 0.5mg tablet PO SCH ×2 (08:22→13:21)
[2018-10-23] MEDS: famotidine 20mg tablet PO SCH ×2 (08:22→20:37)
[2018-10-23] MEDS: benztropine 1mg tablet PO SCH ×2 (08:22→20:37)
[2018-10-23] MEDS: haloperidol 1mg tablet PO SCH ×2 (08:22→20:37)
--- NOTE | 2018-10-23 16:11 | NUR ---
Nursing Progress Note Chief Complaint: Patient living at [facility] and having A/V/H. SI. Legal hold: 5250 expires 11/01/18 Client on involuntary status for GD/DTS. Report received from MIRTHA Oshea with use of SBAR. Why are they here: To provide a safe and therapeutic environment for patient to stabilize. Diagnosis/presenting symptoms: Psychosis. Assessment Patient visible on the unit. Patient attending both meals and groups with limited participation in the groups. Patient does not initiate interaction with others but will smile when interacting with. Patient continues to complain about auditory hallucinations telling him to kill himself. Patient continues to endorse depression and vague suicidal ideation. Patient took a shower today when prompted by staff. Patient spent a portion of the day slowly pacing the unit. S/I, H/I: SI. A/VH: Yes. Sleep: nap ADL's: Needs prompting. Independent. Group attendance: yes, no participation Were meds taken: Complaint. Any med S/E None. Mental Status Exam Appearance: male with pony tail. Poor hygiene Eye contact: Minimal. Behavior: Slowing. Appropriate. Speech: Low volume, clear. Mood: Depressed, confused. Affect: flat. Thought process: hallucinating. Aud. Mejia. Telling him to kill himself Thought Content: no evidence of paranoid thought process, pt reports depression Cognition: Confused, but communicates needs. Insight: Poor. Judgment: Impaired. Interventions PRN's used: Therapeutic interventions: 1:1 to assess severity of symptoms. q15" safety checks. Restraints/seclusion/emergency medication: Encouraged therapeutic group attendance. Justification of Continued Inpatient Treatment: Patient states his auditory mejia are still tormenting him. he is confused and needs medication stabilization, support and ongoing monitoring. At this time, patient would be high risk for readmission if discharged at this time.
[2018-10-23 19:00] VITALS: BP 97/58
[2018-10-23] MEDS: clonazePAM 1mg tablet PO SCH (20:37)
[2018-10-23] MEDS: aripiprazole 5mg tablet PO SCH (20:38)
--- NOTE | 2018-10-23 22:50 | NUR ---
Nursing Progress Note Chief Complaint: Patient living at [facility] and having A/V/H. SI. Legal hold: 5250 expires 11/01/18 Client on involuntary status for GD/DTS. Report received from MIRTHA Oshea with use of SBAR. Why are they here: To provide a safe and therapeutic environment for patient to stabilize. Diagnosis/presenting symptoms: Psychosis. Assessment Received patient napping in his bed. Encouraged patient to come to the day room for evening activities, to eat some popcorn and have his medications. Patient needed to be woken up twice. Patient did eventually get up and come to the day room, but was sedated and a little unsteady on his feet. Patient sat down and listen to some of the music, eat popcorn and drink some juice. When he returned to bed 30 minutes later, his gait was more steady. Patient continues to complain of auditory hallucinations telling him to kill himself and he says the voices causing him to be depressed. Patient denies active suicidal ideation. Patient asleep by 9 PM. S/I, H/I: SI. A/VH: Yes. Sleep: nap ADL's: Needs prompting. Independent. Group attendance: yes, no participation Were meds taken: Complaint. Any med S/E None. Mental Status Exam Appearance: male with pony tail. Poor hygiene Eye contact: Minimal. Behavior: Slowing. Appropriate. Speech: Low volume, clear. Mood: Depressed, confused. Affect: flat. Thought process: hallucinating. Aud. Mejia. Telling him to kill himself Thought Content: no evidence of paranoid thought process, pt reports depression Cognition: Confused, but communicates needs. Insight: Poor. Judgment: Impaired. Interventions PRN's used: none Therapeutic interventions: 1:1 to assess severity of symptoms. q15" safety checks. Restraints/seclusion/emergency medication: Encouraged therapeutic group attendance. Justification of Continued Inpatient Treatment: Patient states his auditory mejia are still tormenting him. he is confused and needs medication stabilization, support and ongoing monitoring. At this time, patient would be high risk for readmission if discharged at this time.
[2018-10-24 08:00] VITALS: BP 92/65
[2018-10-24] MEDS: benztropine 1mg tablet PO SCH ×2 (08:17→20:41)
[2018-10-24] MEDS: clonazePAM 0.5mg tablet PO SCH (08:17)
[2018-10-24] MEDS: famotidine 20mg tablet PO SCH ×2 (08:17→20:41)
[2018-10-24] MEDS: haloperidol 1mg tablet PO SCH ×2 (08:17→20:41)
[2018-10-24] MEDS: CARIPRAZINE 1.5 MG PO SCH (08:18)
[2018-10-24] MEDS: fluticasone nasal spray 16GM bottle NS SCH (08:18)
--- NOTE | 2018-10-24 10:17 | NUR ---
Nursing Note: Paged hospitalist regarding pt's urine culture results. Awaiting call. Addendum: 10/24/18 at 1130 by Patricia Aguilera RN [id number] Jovel pt's UA culture and sensitivity results, no new orders at this time. Will continue to monitor.
--- NOTE | 2018-10-24 15:26 | NUR ---
Legal hold:5250 Client on involuntary status for GD/DTS. Report received from MIRTHA Calvo with use of SBAR . Why are they here: Stabilization of psychiatric condition. Diagnosis/presenting symptoms: Paranoid Schizophrenia; [facility] for his statements that the voices are really bad and he was scared. Assessment Pt was sleeping at change of shift. He was up for breakfast and following breakfast he was in the recreation room watching TV. Pleasant and cooperative with assessment. He indicated he had some difficulty sleeping stating, "Not good, woke up couple of times, hard to go back to sleep." Pt reported nausea and stated sometimes he throws up at home. When asked about hallucinations he shared, "Mumbling, I cant understand them." He indicated the voices are continuous and frighten him. Patient stated that he feels depressed and anxious. He denied SI. What has happened this shift: S/I, H/I: Denies A/VH: Voices are continuous and sometimes frightening Sleep: Napped, pt reported difficulty sleeping during the night ADL's: Independent Group attendance: Pt attended group Were meds taken: Compliant with medication administration Any med S/E: No Mental Status Exam Appearance: Poor hygiene, gomes and hair in ponytail Eye contact:: Indirect Behavior: Appropriate, slowed movements Speech: Slowed Mood: Depressed Affect: Constricted Thought process: Hallucinating Thought Content: Pt frightened by voices Cognition: Confused Insight: Poor Judgment: Poor Interventions PRN's used: No Therapeutic interventions: 1:1 therapeutic assessment, active listening, Q15 min safety checks, encouraged group participation Restraints/seclusion/emergency medication: No Justification of Continued Inpatient Treatment: Pt is depressed, anxious, confused, and continues to be frightened by auditory hallucinations. Pt required medication stabilization with ongoing support and monitoring. If discharged at this time, the patient has a high risk of readmittance.
[2018-10-24] MEDS ORDERED: duloxetine 30mg CAPSULE.DR PO ONE (16:10)
--- NOTE | 2018-10-24 19:21 | NUR ---
Nursing Note: Pt. laying in bed. pt. states he had an uneventful day. No complaints at this time.
[2018-10-24] MEDS: clonazePAM 1mg tablet PO SCH (20:41)
[2018-10-24 20:45] VITALS: BP 96/54
[2018-10-24] MEDS: mag hydrox/Alum hydrox/simeth 30ml oral suspension PO PRN (22:57)
--- NOTE | 2018-10-24 23:11 | NUR ---
pt c/o upset stomach, maalox given
[2018-10-25 07:24] VITALS: BP 102/60
[2018-10-25] MEDS: fluticasone nasal spray 16GM bottle NS SCH (07:55)
[2018-10-25] MEDS: duloxetine 30mg CAPSULE.DR PO SCH (07:56)
[2018-10-25] MEDS: benztropine 1mg tablet PO SCH ×2 (07:56→20:05)
[2018-10-25] MEDS: haloperidol 1mg tablet PO SCH ×2 (07:56→20:05)
[2018-10-25] MEDS: famotidine 20mg tablet PO SCH ×2 (07:56→20:05)
[2018-10-25] MEDS: clonazePAM 0.5mg tablet PO SCH (07:56)
[2018-10-25] MEDS: CARIPRAZINE 1.5 MG PO SCH (08:50)
[2018-10-25] MEDS: acetaminophen 325mg tablet PO PRN ×2 (12:28→19:03)
--- NOTE | 2018-10-25 16:01 | NUR ---
Nursing Progress Note Chief Complaint: Patient living at [facility] and having A/V/H. SI. Legal hold: 5250 expires 11/01/18 Client on involuntary status for GD/DTS. Report received from MIRTHA Oshea with use of SBAR. Why are they here: To provide a safe and therapeutic environment for patient to stabilize. Diagnosis/presenting symptoms: Psychosis. Assessment Patient visible on the unit, attending all meals. Patient went to a.m. group, but did not participate. Patient had someone brighter affect this morning and was smiling while interacting with staff. In the afternoon, patient pacing the unit and refused afternoon group. Patient continues to complain of auditory hallucinations telling him to kill himself. Patient also complained of headache and received Tylenol which was effective. Patient did state he felt a little better and denied suicidal thoughts at this time. S/I, H/I: SI. A/VH: Yes. Sleep: nap ADL's: Needs prompting. Independent. Group attendance: yes, no participation Were meds taken: Complaint. Any med S/E None. Mental Status Exam Appearance: male with pony tail. Poor hygiene Eye contact: Minimal. Behavior: Slowing. Appropriate. Speech: Low volume, clear. Mood: Depressed, confused. Affect: flat. Thought process: hallucinating. Aud. Mejia. Telling him to kill himself Thought Content: no evidence of paranoid thought process, pt reports depression Cognition: Confused, but communicates needs. Insight: Poor. Judgment: Impaired. Interventions PRN's used: tylenol for headache - effective Therapeutic interventions: 1:1 to assess severity of symptoms. q15" safety checks. Restraints/seclusion/emergency medication: Encouraged therapeutic group attendance. Justification of Continued Inpatient Treatment: Patient states his auditory mejia are still tormenting him. he is confused and needs medication stabilization, support and ongoing monitoring. At this time, patient would be high risk for readmission if discharged at this time.
[2018-10-25 20:00] VITALS: BP 108/72
[2018-10-25] MEDS: clonazePAM 1mg tablet PO SCH (20:04)
--- NOTE | 2018-10-26 02:04 | NUR ---
Nursing Progress Note Chief Complaint: Patient living at [facility] and having A/V/H. SI. Legal hold: 5250 expires 11/01/18 Client on involuntary status for GD/DTS. Report received from MIRTHA Oshea with use of SBAR. Why are they here: To provide a safe and therapeutic environment for patient to stabilize. Diagnosis/presenting symptoms: Psychosis. Assessment After report, pt found to be lying in bed, on back. Patient c/o 6/10 back pain, and was given Tylenol. Patient has very flat affect, states he feels he is getting the help he needs. Patient continues to complain of auditory hallucinations, but denies that they are telling him to do things. States that they are just blabbering on and annoying him. Patient denies active suicidal ideation at this time. Patient took medications appropriately. Patient asleep by 9 PM. S/I, H/I: Denies A/VH: Yes, auditory Sleep: no issues ADL's: Needs prompting. Independent. Group attendance: No groups at night Were meds taken: yes Any med S/E None. Mental Status Exam Appearance: Poor hygiene, appears disheveled. Eye contact: appropriate. Behavior: Slowing. Appropriate. Speech: Low volume, clear. Poverty of speech Mood: Depressed Affect: flat. Thought process: hallucinating. Aud. Hallucinations, denies command hallucinations Thought Content: no evidence of paranoid thought process, pt reports depression Cognition: communicates needs appropriately Insight: Poor. Judgment: Impaired. Interventions PRN's used: Tyelenol for pain Therapeutic interventions: 1:1 to assess severity of symptoms. q15" safety checks. Restraints/seclusion/emergency medication:none Justification of Continued Inpatient Treatment: Patient states his auditory hallucinations are ongoing and do tell him to harm himself at times. he is gravely disabled and needs medication stabilization, support and ongoing monitoring. Patient would be high risk for readmission if discharged at this time. Addendum: 10/26/18 at 0207 by Artis Gomez RN Incorrect: did not received report from Dorie. received report from Karen
[2018-10-26 08:00] VITALS: BP 105/69
[2018-10-26] MEDS: CARIPRAZINE 1.5 MG PO SCH (08:00)
[2018-10-26] MEDS: fluticasone nasal spray 16GM bottle NS SCH (08:39)
[2018-10-26] MEDS: famotidine 20mg tablet PO SCH ×2 (08:40→21:18)
[2018-10-26] MEDS: benztropine 1mg tablet PO SCH ×2 (08:40→21:22)
[2018-10-26] MEDS: clonazePAM 0.5mg tablet PO SCH (08:40)
[2018-10-26] MEDS: haloperidol 1mg tablet PO SCH (08:41)
[2018-10-26] MEDS: duloxetine 30mg CAPSULE.DR PO SCH (08:41)
[2018-10-26] MEDS: diazepam 5mg tablet PO PRN ×2 (15:22→21:18)
--- NOTE | 2018-10-26 15:31 | NUR ---
Nursing Progress Note Chief Complaint: Hearing voices at [facility] reported to staff he wants to kill himself. Legal hold: 5250 Client on involuntary status for DTS. Report received from MIRTHA Carvajal with use of SBAR. Why are they here: Medication stabilization Diagnosis/presenting symptoms: Psychosis. Assessment Patient assessment provided at bedside; pt c/o of nausea, pain in his left side refused to eat breakfast. Provided saltine crackers and 7up. He later c/o pain in his neck and was given a PRN Valium. Medication education provided on the differences between Haldol and Valium. Patient endorses A/H that are threatening to kill him. S/I, H/I: Denies A/VH: Yes. Sleep: WNL's ADL's: Poor Group attendance: No Were meds taken: Yes Any med S/E Denies SE; none noted or observed. Mental Status Exam Appearance: Poor hygiene Eye contact: Poor Behavior: All smiles; calm and cooperative; appears to be RIS Speech: Normal rate and rhythm Mood: Calm Affect: Flat Thought process: Resigned Thought Content: Is convinced he will be killed Cognition: Scattered Insight: Poor. Judgment: Impaired. Interventions PRN's used: Valium for neck pain reports effective Therapeutic interventions: Assessment provided at bedside. established rapport, provided active listening, maintained safe and therapeutic environment, provided medication education, obtained and maintained Q 15 min safety checks. Restraints/seclusion/emergency medication: N/A Justification of Continued Inpatient Treatment: In need of psychiatric stabilization. He continues to report A/H telling him he is going to . Remains high risk for readmission if discharged.
[2018-10-26 19:41] VITALS: BP 103/57
[2018-10-26] MEDS: haloperidol 5mg tablet PO SCH (21:18)
[2018-10-26] MEDS: clonazePAM 1mg tablet PO SCH (21:22)
--- NOTE | 2018-10-26 23:49 | NUR ---
Nursing Progress Note Chief Complaint: Patient living at [facility] decompensated and was having A/V/H. Legal hold: 5250 expires 11/01/18 Client on involuntary status for GD/DTS. Report received from MIRTHA De Anda with use of SBAR. Why are they here: To provide a safe and therapeutic environment for patient to stabilize. Diagnosis/presenting symptoms: Psychosis. Assessment Pt lying in bed in dark room at start of shift. Patient c/o voices telling him they are going to kill him. Patient denies active suicidal ideation. Discussed with pt new order for Valium. Pt would like a dose at HS for sleep. Pt is withdrawn. Poor Hygiene. Refused shower. Came into group room for Hannah stayed only for a couple of minutes but was smiling. S/I, H/I: SI. A/VH: Yes. Sleep: nap ADL's: Needs prompting. Independent. Group attendance: yes, no participation Were meds taken: Complaint. Any med S/E None. Mental Status Exam Appearance: male with pony tail. Poor hygiene Eye contact: good Behavior: Slowing. Appropriate. Speech: Low volume, clear. Mood: Depressed, confused. Affect: flat. Thought process: hallucinating. Aud. Mejia. Telling him they are going to kill him. Thought Content: paranoid thought process Cognition: communicates needs. Insight: Poor. Judgment: Impaired. Interventions PRN's used: Valium for anxiety and HS Therapeutic interventions: 1:1 to assess severity of symptoms. Teaching on medications effects and side effects. q15" safety checks. Encouraged therapeutic group attendance. Restraints/seclusion/emergency medication: none Justification of Continued Inpatient Treatment: Patient states his auditory mejia are still tormenting him. he is confused and needs medication stabilization, support and ongoing monitoring. At this time, patient would be high risk for readmission if discharged at this time.
[2018-10-27] MEDS: clonazePAM 0.5mg tablet PO SCH (07:57)
[2018-10-27] MEDS: benztropine 1mg tablet PO SCH ×2 (07:58→20:29)
[2018-10-27] MEDS: duloxetine 30mg CAPSULE.DR PO SCH (07:58)
[2018-10-27] MEDS: famotidine 20mg tablet PO SCH ×2 (07:58→20:28)
[2018-10-27 08:00] VITALS: BP 101/64
[2018-10-27] MEDS: fluticasone nasal spray 16GM bottle NS SCH (08:26)
[2018-10-27] MEDS: CARIPRAZINE 1.5 MG PO SCH (08:39)
[2018-10-27] MEDS: diazepam 5mg tablet PO PRN ×2 (12:48→20:27)
--- NOTE | 2018-10-27 15:09 | NUR ---
Nursing Progress Note Chief Complaint: Hearing voices at [facility] reported to staff he wants to kill himself. Legal hold: 5250 Client on involuntary status for DTS. Report received from MIRTHA Fofana with use of SBAR. Why are they here: Medication stabilization Diagnosis/presenting symptoms: Psychosis. Assessment Patient assessment provided at bedside; pt denies pain today. He states his side is much better and that the Valium helped yesterday, "a lot." He is smiling today reports a decrease in his voices. S/I, H/I: Denies A/VH: Yes "less." Sleep: WNL's ADL's: Poor Group attendance: Y Were Meds taken: Y Any med S/E Denies SE; none noted or observed. Mental Status Exam Appearance: Poor hygiene Eye contact: Improved Behavior: Calm, cooperative Speech: Normal rate and rhythm Mood: Cooperative Affect: Blunted Thought process: Engages in conversation when spoken too Thought Content: Less concerned w/being killed Cognition: Difficulty w/abstract thoughts Insight: Poor. Judgment: Impaired. Interventions PRN's used: Valium Therapeutic interventions: established rapport, provided active listening, maintained safe and therapeutic environment, provided medication education, obtained and maintained Q 15 min safety checks. Restraints/seclusion/emergency medication: N/A Justification of Continued Inpatient Treatment: In need of psychiatric stabilization. He continues to report A/H telling him he is going to . Remains high risk for readmission if discharged. Much improvement w/the new medication Vraylar.
--- NOTE | 2018-10-27 19:21 | NUR ---
Nursing Progress Note: One to one with the patient to assess severity of disordered thoughts, self harm risk and to educate to medications. The patient is on q 15 minute safety checks and has not had any self injurious behaviors reported or observed. He was up in the dining room for the evening meal and he stated he has been trying to eat but states he usually is not hungry when the meals are served. He was alert and cooperative during the evening assessment. He appeared cleaned and was appropriately dressed but admitted he had not showered for several days. His affect was blunted and he did appear anxious. He stated that his anxiety level was high. He reports he has been feeling paranoid of dying and fears he will be killed in his sleep. He stated that he did not sleep well last night and had difficulty going to sleep and staying asleep. He reports he feels depressed. He reports decreased concentration and focus, poor appetite, low energy and having insomnia. He reports constant and command hallucinations that tell him to kill himself and " " He denies visual hallucinations, olfactory hallucinations or tactile hallucinations. He denies that he wants to kill himself or harm others. He has been medication compliant.
[2018-10-27 20:00] VITALS: BP 109/67
[2018-10-27] MEDS: clonazePAM 1mg tablet PO SCH (20:27)
[2018-10-27] MEDS: acetaminophen 325mg tablet PO PRN (20:28)
[2018-10-27] MEDS: haloperidol 5mg tablet PO SCH (20:28)
[2018-10-28 08:00] VITALS: BP 98/64
[2018-10-28] MEDS: duloxetine 30mg CAPSULE.DR PO SCH (08:17)
[2018-10-28] MEDS: clonazePAM 0.5mg tablet PO SCH (08:17)
[2018-10-28] MEDS: famotidine 20mg tablet PO SCH ×2 (08:17→20:48)
[2018-10-28] MEDS: benztropine 1mg tablet PO SCH ×2 (08:18→20:50)
[2018-10-28] MEDS: fluticasone nasal spray 16GM bottle NS SCH (08:20)
[2018-10-28] MEDS: CARIPRAZINE 1.5 MG PO SCH (08:24)
--- NOTE | 2018-10-28 15:00 | NUR ---
Nursing Progress Note Chief Complaint: Hearing voices at [facility] reported to staff he wants to kill himself. Legal hold: 5250 ; Client on involuntary status for DTS. Report received from MIRTHA Angelo with use of Nursing Note. Why are they here: SafetyMedication stabilization Diagnosis/presenting symptoms: Psychosis/AH Assessment Pt denies pain today. Alert and oriented x4 and easily engagable. 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 States he will be returning to [facility] but needs to be here to "get on the right meds". Attended and engaged in both groups today and states he feels safe and good to be here. S/I, H/I: Denies A/VH: Yes; He reports hearing them at night when he is lieing in bed and they sound like voices of friends telling him to kill himself. Sleep: Reports sleeping well; 8-9 hrs last night. ADL's: Poor Group attendance: Y Were Meds taken: Y Any med S/E Denies SE; none noted or observed. Mental Status Exam Appearance: Poor hygiene Eye contact: Good. Behavior: Calm, cooperative Speech: Normal rate and rhythm Mood: Cooperative Affect: Blunted Thought process: Linear; Engages in conversation when spoken too Thought Content: Less concerned w/being killed Cognition: Difficulty w/abstract thoughts Insight: Poor. Judgment: Impaired. Interventions PRN's used: Valium Therapeutic interventions: established rapport, provided therapeutic conversation, grounding and active listening, maintained safe and therapeutic Milieu, provided medication education, obtained and maintained Q 15 min safety checks. Restraints/seclusion/emergency medication: N/A Justification of Continued Inpatient Treatment: In need of psychiatric stabilization. He continues to report A/H telling him he is going to . Remains high risk for readmission if discharged. Much improvement w/the new medication Vraylar.
--- NOTE | 2018-10-28 16:33 | NUR ---
Reassessment: Documented PO intake 100% on regular diet meeting nutrient needs. [facility] 10/28. Will continue to follow. Rec: 1. Continue with regular diet 2. wt per rx Addendum: 10/28/18 at [address] Amended: Links added.
[2018-10-28 19:00] VITALS: BP 120/66
[2018-10-28] MEDS ORDERED: GABA-530 PO (19:01)
[2018-10-28] MEDS ORDERED: VAL5T PO (19:01)
[2018-10-28] MEDS ORDERED: CLON0.5T12 PO (19:01)
[2018-10-28] MEDS ORDERED: BENZ1TAB7 PO (19:01)
[2018-10-28] MEDS ORDERED: CLON1TAB12 PO (19:01)
[2018-10-28] MEDS ORDERED: DULO30CA51 PO (19:01)
[2018-10-28] MEDS ORDERED: CARI3CAP PO (19:01)
[2018-10-28] MEDS ORDERED: HALO5TAB PO (19:01)
[2018-10-28] MEDS ORDERED: FLUT200B3 PO (19:01)
[2018-10-28] MEDS: haloperidol 5mg tablet PO SCH (20:48)
[2018-10-28] MEDS: clonazePAM 1mg tablet PO SCH (20:49)
--- NOTE | 2018-10-28 21:37 | NUR ---
Nursing Progress Note Chief Complaint: Hearing voices at [facility] reported to staff he wants to kill himself. Legal hold: 5250 ; Client on involuntary status for DTS. Report received from MIRTHA Dietz with use of Nursing Note. Why are they here: SafetyMedication stabilization Diagnosis/presenting symptoms: Psychosis/AH Assessment Pt denies pain today. Alert and oriented x4 and easily engages with staff. The patient was being interviewed by Dr. Kim at shift change. Patient interviewed 1:1 upon returning to room. This patient states he is ready to return to the [facility] [place]. 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 S/I, H/I: Denies A/VH: Yes; He reports hearing mumbling voices, they are not commanding him to do anything. Sleep: Patient falls to sleep following 2100 hour medication pass. . ADL's: Poor Group attendance: Y Were Meds taken: Y Any med S/E Denies SE; none noted or observed. Mental Status Exam Appearance: Poor hygiene Eye contact: Good. Behavior: Calm, cooperative Speech: Normal rate and rhythm Mood: Cooperative Affect: Blunted Thought process: Linear; Engages in conversation when spoken too Thought Content: Less concerned w/being killed Cognition: Difficulty w/abstract thoughts Insight: Poor. Judgment: Impaired. Interventions PRN's used: None Therapeutic interventions: established rapport, provided therapeutic conversation, grounding and active listening, maintained safe and therapeutic Milieu, provided medication education, obtained and maintained Q 15 min safety checks. Restraints/seclusion/emergency medication: N/A Justification of Continued Inpatient Treatment: In need of psychiatric stabilization. He continues to report A/H telling him he is going to . Remains high risk for readmission if discharged. Much improvement w/the new medication Vraylar.
[2018-10-29 08:00] VITALS: BP 96/54
[2018-10-29] MEDS: clonazePAM 0.5mg tablet PO SCH (08:09)
[2018-10-29] MEDS: famotidine 20mg tablet PO SCH (08:09)
[2018-10-29] MEDS: duloxetine 30mg CAPSULE.DR PO SCH (08:09)
[2018-10-29] MEDS: CARIPRAZINE 1.5 MG PO SCH (08:10)
[2018-10-29] MEDS: benztropine 1mg tablet PO SCH (08:11)
[2018-10-29] MEDS: fluticasone nasal spray 16GM bottle NS SCH (08:12)
--- NOTE | 2018-10-29 14:16 | NUR ---
1416 Discharge Note: Pt discharged back to his [facility] [place] transportation provided by staff from [place]. Pt left smiling. He went around and shook staffs hands and told the psychiatrist, Dr. Radha eastman." Personal belongings returned to him per MELANY Obrien. Medications called in to pharmacy. Appt. scheduled.
== END 2018-10-29 14:20 | disposition home or self-care (01) | DRG 885 ==
LOC: ADULT MH 20:00 → EDBD 20:00
PROVIDERS: ADMIT Psychiatry & Neurology Psychiatry; ATTEND Psychiatry & Neurology Psychiatry
DX: F20.0 Paranoid schizophrenia (principal); R45.851 Suicidal ideations; F33.9 Major depressive disorder, recurrent, unspecified; J44.9 Chronic obstructive pulmonary disease, unspecified; F41.9 Anxiety disorder, unspecified; E86.0 Dehydration; K21.9 Gastro-esophageal reflux disease without esophagitis; I10 Essential (primary) hypertension; F17.210 Nicotine dependence, cigarettes, uncomplicated; Z79.899 Other long term (current) drug therapy
CPT/HCPCS: 36415; 71045; 80053; 80061; 80074; 81001; 82607; 83036; 84443; 85025; 86703; 87070; 87077; 87088; 87186; 99406; Q0163